=== PATIENT | male | born 1965 | race Caucasian/White ===

== ENCOUNTER 2023-12-02 06:41 | Day surgery (SDC) | payer OTHER, SELFPAY ==
[2023-12-02 13:33] VITALS: BMI 46.5
[2023-12-02 13:54] VITALS: BP 121/84
--- NOTE | 2023-12-02 14:13 | PTCARENOTE ---
Patient ready at 1410 and Myesha REIS RN ready to take patient back. Asked Myesha if can come back and see patient and GI is ready for patient. Went out to waiting room and spoke with patients and she was ok with not seeing him prior to the
procedure.
[2023-12-02 14:50] VITALS: BP 111/66
[2023-12-02 15:00] VITALS: BP 105/74
[2023-12-02 15:15] VITALS: BP 114/69
[2023-12-02 15:30] VITALS: BP 109/64
== END 2023-12-02 15:45 | disposition home or self-care (01) ==
LOC: SDS 06:41
PROVIDERS: ATTENDING PHYSICIAN Internal Medicine Gastroenterology
DX: K22.2 Esophageal obstruction (principal)
CPT/HCPCS: 43249; C1726

== ENCOUNTER → 2025-05-24 10:12 | Outpatient (REF) | payer BC, SELFPAY | LOC: RCS 10:12 | PROVIDERS: ATTENDING PHYSICIAN Student in an Organized Health Care Education/Training Program; FAMILY PHYSICIAN Family Medicine | DX: I49.8 Other specified cardiac arrhythmias (principal) | CPT/HCPCS: 93225; 93226 ==

== ENCOUNTER → 2025-06-07 09:44 | Outpatient (REF) | payer BC, SELFPAY ==
--- NOTE | 2025-06-07 11:15 | CARDSERVDEF ---
Echocardiogram with Definity completed after protocol screening completed. Allergies verified.
Patent IV site: _Left forearm 22 G PC____
IV site flushed with 0.9% NaCl pre and post administration.
Diluted bolus method utilized to enhance visualization of ventricular waggoner.
Total volume given: __3__ mL
Patient tolerated all procedures well without complications.
Heplock D/C ed at 1113, site clear, no redness, no edema. Pressure held, no bleeding, 2x2 applied and taped. Pt offers no complaints.
== END ==
LOC: RCS 09:44
PROVIDERS: ATTENDING PHYSICIAN Student in an Organized Health Care Education/Training Program; FAMILY PHYSICIAN Family Medicine
DX: I49.3 Ventricular premature depolarization (principal)
CPT/HCPCS: 93306; Q9957